=== PATIENT | male | born 1985 | race Hispanic/Latino ===

== ENCOUNTER 2017-06-24 08:03 | Emergency (ER) | payer BC ==
[2017-06-24] MEDS ORDERED: Mag-Al Plus 1200 MG/1200 MG/120 MG/30 ML UDCUP ONE (08:31)
[2017-06-24] MEDS ORDERED: Lidocaine Viscous Sol 2% 15 ml UD Cup ONE (08:31)
[2017-06-24 08:41] LABS: Bilirubin Negative (Negative); Blood, Urine Large (Negative); Clarity Slightly Cloudy (Clear); Glucose, Urine (Dipstick) Negative (Negative); Leukocyte Negative (Negative); Nitrite Negative (Negative); Protein, Urine (Dipstick) Negative (Neg-Trace); Urobilinogen 0.2 mg/dL (0.2-1.0); pH, Urine 5.5 (5.0-9.0)
[2017-06-24 08:48] LABS: Bacteria/HPF None Seen HPF (None Seen); Crystals/HPF None Seen HPF (Negative); Hyaline Casts/LPF NONE SEEN LPF (0-3 Hyaline); Other Casts/LPF None Seen LPF (0-3 Hyaline); Oval Fat Bodies/HPF None Seen HPF (None Seen); Renal Epithelial None Seen HPF (0-3); Sperm/HPF None Seen HPF (None Seen); Squamous Epithelial None Seen HPF (0-3); Transitional Epithelial NONE SEEN HPF (0-3); Trichomonas/HPF None Seen HPF (None Seen); WBC/HPF None Seen HPF (0-3); Yeast-All Forms None Seen HPF (None Seen)
[2017-06-24 08:55] LABS: ALT (SGPT) 82 U/L (8-55); AST (SGOT) 43 U/L (5-34); Albumin 4.2 g/dL (3.5-5.0); Alkaline Phosphatase 90 U/L (40-150); Anion Gap 12 mmol/L (10-20); BUN (Urea Nitrogen) 18 mg/dL (8.9-20.6); Bilirubin, Total 0.3 mg/dL (0.2-1.2); Calc. Creatinine Clearance 0 mL/min (70-130); Carbon Dioxide 22 mmol/L (22-29); Chloride 111 mmol/L (98-107); Estimated GFR-MDRD 73; Globulin 3.6 g/dL (2.4-3.5); Glucose 107 mg/dL (70-105); Lipase 54 U/L (8-78); Potassium 4.4 mmol/L (3.5-5.1); Protein, Total 7.8 g/dL (6.0-8.3); Sodium 141 mmol/L (136-145)
[2017-06-24 08:57] LABS: #Eosinphils 0.1 thou/uL (0.0-0.7); #Lymphocytes 1.8 thou/uL (1.20-3.40); #Monocytes 0.5 thou/uL (0.11-0.59); #Neutrophils 4.2 thou/uL (1.40-6.50); %Basophils 0.6 % (0.0-1.0); %Eosinophils 1.5 % (0.0-10.0); %Lymphocytes 27.4 % (21.0-51.0); %Monocytes 6.9 % (0.0-10.0); %Neutrophils 63.5 % (42.0-75.0); Hemoglobin 15.3 g/dL (14.0-18.0); Mean Corpuscular HGB CONC 34.9 g/dL (32.0-36.0); Mean Corpuscular Hemoglobin 29.4 pg (27.0-31.0); Mean Corpuscular Volume 84.1 fl (80.0-94.0); Mean Platelet Volume 5.5 fL (7.4-10.4); Platelet Count 281 thou/uL (130-400); RBC Distribution Width 12.2 % (11.5-14.5); Red Blood Cell (RBC) Count 5.21 mill/uL (4.70-6.10); White Blood Cell (WBC) Count 6.5 thou/uL (4.8-10.8)
--- NOTE | 2017-06-24 11:17 | CT ---
PRELIMINARY REPORT/[facility]/EMERGENCY AFTER HOURS PROCEDURE: EXAM: CT Abdomen and Pelvis Without Intravenous Contrast CLINICAL HISTORY: 32 years old, male; Pain; Abdominal pain; Localized; Lower; Patient HX: HX of kidney stones TECHNIQUE: Axial computed tomography images of the abdomen and pelvis without intravenous contrast. Coronal refo rmatted images were created and reviewed. COMPARISON: No relevant prior studies available. FINDINGS: Lower thorax: There is a 5 mm noncalcified subpleural right lower lobe pulmonary nodule on axial imag e 8. There is a 6 mm right middle lobe noncalcified nodule on axial image 1. There is a 3 mm left low er lobe noncalcified micronodule on axial image 7. ABDOMEN: Liver: Unremarkable. Gallbladder and bile ducts: Unremarkable. No calcified stones. No ductal dilation. Pancreas: Unremarkable. No ductal dilation. Spleen: Unremarkable. No splenomegaly. Adrenals: Unremarkable. No mass. Kidneys and ureters: There is mild right hydronephrosis and hydroureter with periureteral fat strandi ng. There is no obstructing ureteral stone. There is a tiny 2 mm intraluminal punctate calcification near the urinary bladder to prostatic urethra transition on coronal image 88 suggesting a recently passed stone. There is bilateral nonobstructing renal calcification. Stomach and bowel: Unremarkable. No obstruction. No mucosal thickening. Appendix: No findings to suggest acute appendicitis. PELVIS: Bladder: Unremarkable. No stones. Reproductive: Unremarkable as visualized. ABDOMEN and PELVIS: Intraperitoneal space: Unremarkable. No free air. No significant fluid collection. Bones/joints: No acute fracture. No dislocation. Soft tissues: There is mild stranding around the umbilicus that could represent mild omphalitis. Vasculature: Unremarkable. No abdominal aortic aneurysm. Lymph nodes: Unremarkable. No enlarged lymph nodes. IMPRESSION: 1. There is mild right hydronephrosis and hydroureter with periureteral fat stranding. There is no ob structing ureteral stone. There is a tiny 2 mm intraluminal punctate calcification near the urinary b ladder to prostatic urethra transition on coronal image 88 suggesting a recently passed stone. 2. There is bilateral nonobstructing renal calcification. 3. The appendix is normal. 4. There are noncalcified pulmonary nodules that measure up to 6 mm in size. If there are no risk fac tors for the development of pulmonary malignancy, this can reasonably be considered benign without fo llowup in a patient under 35 years of age (< 1% of all lung cancer cases). Multiple follow-up CT stud ies should be avoided in young patients, when possible, due to the elevated risks of radiation exposu re in this age group. If there is a history of cancer or risk factors for lung cancer, a 12 month unenhanced low dose CT chest follow up could be considered to evaluate stability.The gallbladder is a bsent. This interpretation was based upon the receipt of 257 image(s). Thank you for allowing us to participate in the care of your patient. Dictated and Authenticated by: Yifan Barrera DO 06/24/2017 9:50 AM Central Time ([place] & [place]) FINAL REPORT CT ABDOMEN AND PELVIS WITHOUT CONTRAST: Date: 06/24/[address] was done using a renal stone protocol. Axial slices were acquired, then coronal jonathan nstructions were done. FINDINGS: The lung bases are clear. There is a 5.0 mm, noncalcified, subpleural nodule adjacent to the right lower lobe on one of the low er thoracic slices, as well as a 6.0 mm nodule in the right middle lobe on the very top slice, not ca lcified. There may be an even smaller nodule in the left lower lobe. Given the size and age group of the patient, the findings have an extremely high likelihood of being benign. Typically, they would no t be followed up in this age group unless there was a history of cancer or reason to suspect such. The liver, spleen, pancreas, gallbladder, adrenal glands, and abdominal aorta show no acute findings. The right kidney shows some very mild right hydronephrosis and some minimal periureteral stranding. N evertheless, no ureteral calculus seen. On one of the pelvic slices, however, there is a hint of a ve ry tiny calcification near the bladder outlet leading into the prostatic urethra that easily could be a recently passed stone. The patient does have bilateral nonobstructing renal calculi, larger ones o n the left than the right. The bowel is nondistended. There is no sign of inflammatory change around bowel or bowel wall thicken ing. The appendix appears normal. CT of the pelvis shows no pelvic masses, fluid collections, or inflammatory changes. Incidentally not ed is a disc osteophyte complex at L5-S1 that may barely impinge upon the left S1 root. IMPRESSION: 1. Findings most consistent with a recently passed calculus from the right kidney that is probably n ear the bladder outlet. 2. Bilateral nonobstructing renal calculi. 3. Several tiny noncalcified pulmonary nodules as noted above. Given the age group, unless there wer e other reasons to suspect cancer in this patient, the probability of these being benign findings is extraordinarily high and probably does not need a follow-up. Report in agreement with the preliminary reading by Jazzy. POS: HOME
== END 2017-06-24 10:13 | disposition home or self-care (01) ==
LOC: BURERS 08:03
DX: N13.2 Hydronephrosis with renal and ureteral calculous obstruction (principal); E78.5 Hyperlipidemia, unspecified; I10 Essential (primary) hypertension
CPT/HCPCS: 74176; 80053; 81003; 81015; 83690; 85025; 96360